=== PATIENT | male | born 1960 | race Caucasian/White ===

== ENCOUNTER 2022-10-28 18:42 | Emergency (ER) | payer SELFPAY ==
[~2022-10-28] VITALS: Ht 195.5 cm; Wt 117.9 kg
--- NOTE | 2022-10-28 18:49 | ED Neurological Problem ---
General Chief Complaint: Dizziness/Syncope Stated Complaint: EYES SHAKING,DIZZY History of Present Illness Date Seen by Provider: Oct 28, 2022 Time Seen by Provider: 18:46 Initial Comments 62 yr M with PMH of seasonal allergies, and is an active smoker, is sent here from [facility] for vertigo and nystagmus going on since Thursday (past 3 days). Pt has been struggling with seasonal Denies chest pain, blurry vision, palpitations, SOB, abdominal pain, diarrhea, vomiting, fever and chills allergies over the past couple weeks with postnasal drip, ear fullness, facial tenderness, congestion. Allergies and Home Medications Allergies Coded Allergies: No Known Drug Allergies (Unverified , 10/28/22) Patient Home Medication List Home Medication List Reviewed: Yes Review of Systems Review of Systems Constitutional: no symptoms reported Eyes: No Symptoms Reported Ears, Nose, Mouth, Throat: see HPI Respiratory: no symptoms reported Cardiovascular: no symptoms reported Gastrointestinal: no symptoms reported Genitourinary: no symptoms reported Musculoskeletal: no symptoms reported Skin: no symptoms reported Psychiatric/Neurological: See HPI Endocrine: No Symptoms Reported Hematologic/Lymphatic: No Symptoms Reported Physical Exam Vital Signs Vital Signs - First Documented 10/28/22 18:42 Temp 35.3 Pulse 63 Resp 16 B/P (MAP) 138/84 (102) Pulse Ox 96 O2 Delivery Room Air Capillary Refill : Height, Weight, BMI Height: '" Weight: lbs. oz. 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, no motor/sensory deficits, alert, normal mood/affect, oriented x 3 Crainal Nerves: normal hearing, normal speech, PERRL Coordination/Gait: normal finger to nose, normal gait, negative Romberg's sign Motor/Sensory: no motor deficit, no sensory deficit, no pronator drift, neg ative Babinski's sign Skin: normal color Progress/Results/Core Measures Results/Orders Lab Results Laboratory Tests Test 10/28/22 19:10 Range/Units White Blood Count 12.3 H 4.3-11.0 10^3/uL Red Blood Count 5.23 4.30-5.52 10^6/uL Hemoglobin 16.5 13.3-17.7 g/dL Hematocrit 49 40-54 % Mean Corpuscular Volume 93 80-99 fL Mean Corpuscular Hemoglobin 32 25-34 pg Mean Corpuscular Hemoglobin Concent 34 32-36 g/dL Red Cell Distribution Width 12.6 10.0-14.5 % Platelet Count 266 130-400 10^3/uL Mean Platelet Volume 9.6 9.0-12.2 fL Immature Granulocyte % (Auto) 1 % Neutrophils (%) (Auto) 81 H 42-75 % Lymphocytes (%) (Auto) 11 L 12-44 % Monocytes (%) (Auto) 5 0-12 % Eosinophils (%) (Auto) 1 0-10 % Basophils (%) (Auto) 1 0-10 % Neutrophils # (Auto) 10.0 H 1.8-7.8 10^3/uL Lymphocytes # (Auto) 1.4 1.0-4.0 10^3/uL Monocytes # (Auto) 0.6 0.0-1.0 10^3/uL Eosinophils # (Auto) 0.1 0.0-0.3 10^3/uL Basophils # (Auto) 0.1 0.0-0.1 10^3/uL Immature Granulocyte # (Auto) 0.1 0.0-0.1 10^3/uL Prothrombin Time 12.6 12.2-14.7 SEC INR Comment 0.9 0.8-1.4 Activated Partial Thromboplast Time 23 L 24-35 SEC Sodium Level 141 135-145 MMOL/L Potassium Level 4.2 3.6-5.0 MMOL/L Chloride Level 108 H 98-107 MMOL/L Carbon Dioxide Level 22 21-32 MMOL/L Anion Gap 11 5-14 MMOL/L Blood Urea Nitrogen 14 7-18 MG/DL Creatinine 0.83 0.60-1.30 MG/DL Estimat Glomerular Filtration Rate 99 BUN/Creatinine Ratio 17 Glucose Level 129 H 70-105 MG/DL Calcium Level 9.2 8.5-10.1 MG/DL Corrected Calcium 9.2 8.5-10.1 MG/DL Magnesium Level 2.1 1.6-2.4 MG/DL Total Bilirubin 0.4 0.1-1.0 MG/DL Aspartate Amino Transf (AST/SGOT) 11 5-34 U/L Alanine Aminotransferase (ALT/SGPT) 11 0-55 U/L Alkaline Phosphatase 90 40-136 U/L Troponin I < 0.30 <0.30 NG/ML Total Protein 6.7 6.4-8.2 GM/DL Albumin 4.0 3.2-4.5 GM/DL My Orders Orders - MARKUS TELLEZ MD Ct Head Wo-R/O Stroke (10/28/22 18:45) Chest 1 View Ap/Pa Only (10/28/22 18:46) Continuous Ekg Monitoring (10/28/22 18:47) Ekg Tracing (10/28/22 18:47) Cbc With Automated Diff (10/28/22 18:47) Comprehensive Metabolic Panel (10/28/22 18:47) Drug Screen Stat (Urine) (10/28/22 18:47) Magnesium (10/28/22 18:47) Protime With Inr (10/28/22 18:47) Partial Thromboplastin Time (10/28/22 18:47) Ua Culture If Indicated (10/28/22 18:47) Troponin I Fs (10/28/22 18:47) Ed Iv/Invasive Line Start (10/28/22 19:13) Amoxicillin/Clavulanate Tablet (Amoxicil (10/28/22 20:00) Meclizine Tablet (Meclizine Tablet) (10/28/22 20:00) Vital Signs/I&O 10/28/22 18:42 Temp 35.3 Pulse 63 Resp 16 B/P (MAP) 138/84 (102) Pulse Ox 96 O2 Delivery Room Air Progress Progress Note : Progress Note 1. NEAR SYNCOPE WORK-UP: - CT HEAD: no acute findings - CXR: normal - CBC:WBC is elevated 12.3 with a left shift - CMP:unremarkable - Troponin: undetected - EKG: bradycardia, non-ischemic - UA/ UDS: Did not give urine sample - Prescriptions given for Augmentin 875mg , twice a day for 7 days with first tab given in ER, Meclizine 25mg , three times a day only as needed for dizziness. 7 day supply given. Meclizine (one dose) given in ER. - Make ENT appointment tomorrow (Dr. Davis's office) - Follow up with PCP within 7 days. - Pt has effusions in both ears which could be triggered by his seasonal allergy symptoms he has been having, along with his elevated white count, leading to ear infections with effusion, which in turn may be triggering his vertigo. -The patient was seen in the ED, and treated appropriately to presentation at a specific point in time. Patient is informed that there is a possibility that disease and illness can evolve and change in acuity rapidly or slowly after patient is discharged from the ER. Precautionary advice given to the patient for immediate return to ER if symptoms worsen or do not resolve, and to seek emergency care sooner rather than later. Pt also advised on the importance of PCP follow up and compliance with management and follow up plan with PCP and/or specialist, as this is part of the management plan. Pt verbally expressed understanding. Diagnostic Imaging Diagonstic Imaging: Xray, CT Plain Films/CT/US/NM/MRI: chest, head Comments [facility] [place], [place] NAME: KJ SORENSEN [facility] REC#: [id number] PT STATUS: REG ER : 1960 PHYSICIAN: MARKUS TELLEZ MD ADMIT DATE: 10/28/22/ER FS Draft Date of Exam:10/28/22 CHEST 1 VIEW AP/PA ONLY INDICATION: Near syncope. Time of Exam: 6:52 PM No prior studies are available for comparison. FINDINGS: The heart size is normal. The pulmonary vascularity is unremarkable. The lungs are clear. No infiltrate, effusion or pneumothorax is detected. IMPRESSION: No acute cardiopulmonary process is detected. Dictated on workstation # [id number] Dict: 10/28/221912 Trans: 10/28/221915 [facility] [id number] Interpreted by: DARCI MENESES MD Electronically signed by: [facility] [place], [place] NAME: KJ SORENSEN [facility] REC#: [id number] PT STATUS: REG ER : 1960 PHYSICIAN: MARKUS TELLEZ MD ADMIT DATE: 10/28/22/ER FS Draft Date of Exam:10/28/22 CT HEAD WO-R/O STROKE PROCEDURE: CT head wo r/o stroke. TECHNIQUE: Multiple contiguous axial images were obtained through the brain without the use of intravenous contrast. Auto Exposure Controls were utilized during the CT exam to meet ALARA standards for radiation dose reduction. INDICATION: Dizziness. COMPARISON: None. FINDINGS: Mild to moderate generalized parenchymal volume loss. No intracranial hemorrhage, mass effect, hydrocephalus or extra-axial fluid collections. No CT evidence of a territorial infarction. Osseous structures are intact. Paranasal sinuses and mastoids are unremarkable. IMPRESSION: No acute intracranial CT findings. Dictated on workstation # [id number] Dict: 10/28/221908 Trans: 10/28/221911 [facility] [id number] Interpreted by: SHELLEY DANIEL MD Electronically signed by: Departure Impression Primary Impression: Bilateral otitis media with effusion Additional Impression: BPPV (benign paroxysmal positional vertigo) Qualified Codes: H81.10 - Benign paroxysmal vertigo, unspecified ear Disposition: 01 HOME, SELF-CARE Condition: Stable Departure-Patient Inst. Referrals: CLOTILDE DAVIS MD Patient Instructions: Vertigo (a Type of Dizziness) (DC), Serous Otitis Media (DC), Fluid in the Ear ED Add. Discharge Instructions: - Prescriptions given for Augmentin 875mg , twice a day for 7 days, Meclizine 25mg , three times a day only as needed for dizziness. & day supply given. Do not drive while using meclizine. - Make ENT appointment tomorrow (Dr. Davis's office) - Follow up with PCP within 7 days. All discharge instructions reviewed with patient and/or family. Voiced u nderstanding. Scripts Amoxicillin (Amoxicillin) 875 Mg Tablet 875 MG PO BID for 7 Days, #14 TAB Prov: MARKUS TELLEZ MD 10/28/22 Meclizine HCl (Meclizine HCl) 25 Mg Tablet 25 MG PO TID for Dizziness for 7 Days, #21 TAB Prov: MARKUS TELLEZ MD 10/28/22 MARKUS TELLEZ MD Oct 28, 2022 18:49
--- NOTE | 2022-10-28 19:13 | Diagnostic Imaging Report ---
PROCEDURE: CT head wo r/o stroke. TECHNIQUE: Multiple contiguous axial images were obtained through the brain without the use of intravenous contrast. Auto Exposure Controls were utilized during the CT exam to meet ALARA standards for radiation dose reduction. INDICATION: Dizziness. COMPARISON: None. FINDINGS: Mild to moderate generalized parenchymal volume loss. No intracranial hemorrhage, mass effect, hydrocephalus or extra-axial fluid collections. No CT evidence of a territorial infarction. Osseous structures are intact. Paranasal sinuses and mastoids are unremarkable. IMPRESSION: No acute intracranial CT findings. Dictated by: Dictated on workstation # [id number]
--- NOTE | 2022-10-28 19:16 | Diagnostic Imaging Report ---
INDICATION: Near syncope. Time of Exam: 6:52 PM No prior studies are available for comparison. FINDINGS: The heart size is normal. The pulmonary vascularity is unremarkable. The lungs are clear. No infiltrate, effusion or pneumothorax is detected. IMPRESSION: No acute cardiopulmonary process is detected. Dictated by: Dictated on workstation # [id number]
[2022-10-28 19:18] LABS: BASOPHILS # (AUTO) 0.1 10^3/uL (0.0-0.1); BASOPHILS % (AUTO) 1 % (0-10); EOSINOPHILS # (AUTO) 0.1 10^3/uL (0.0-0.3); EOSINOPHILS % (AUTO) 1 % (0-10); HEMATOCRIT 49 % (40-54); HEMOGLOBIN 16.5 g/dL (13.3-17.7); LYMPHOCYTES # (AUTO) 1.4 10^3/uL (1.0-4.0); LYMPHOCYTES % (AUTO) 11 % (12-44); MEAN CORPUSCULAR HEMOGLOBIN 32 pg (25-34); MEAN CORPUSCULAR HGB CONC 34 g/dL (32-36); MEAN CORPUSCULAR VOLUME 93 fL (80-99); MEAN PLATELET VOLUME 9.6 fL (9.0-12.2); MONOCYTES # (AUTO) 0.6 10^3/uL (0.0-1.0); MONOCYTES % (AUTO) 5 % (0-12); NEUTROPHILS % (AUTO) 81 % (42-75); PLATELET COUNT 266 10^3/uL (130-400); WHITE BLOOD COUNT 12.3 10^3/uL (4.3-11.0)
[2022-10-28 19:41] LABS: INR 0.9 (0.8-1.4); PROTHROMBIN TIME PATIENT 12.6 SEC (12.2-14.7)
[2022-10-28 19:48] LABS: ALANINE AMINOTRANSFERASE 11 U/L (0-55); ALKALINE PHOSPHATASE 90 U/L (40-136); BILIRUBIN,TOTAL 0.4 MG/DL (0.1-1.0); BUN/CREATININE RATIO 17; CALCIUM 9.2 MG/DL (8.5-10.1); CARBON DIOXIDE 22 MMOL/L (21-32); CHLORIDE 108 MMOL/L (98-107); CREATININE SERUM 0.83 MG/DL (0.60-1.30); GFR ESTIMATED 99; GLUCOSE 129 MG/DL (70-105); MAGNESIUM 2.1 MG/DL (1.6-2.4); POTASSIUM 4.2 MMOL/L (3.6-5.0); SODIUM 141 MMOL/L (135-145); TOTAL PROTEIN 6.7 GM/DL (6.4-8.2)
[2022-10-28] MEDS ORDERED: AMOXICILLIN/Clavulanate 875 MG TABLET PO STA (20:00)
[2022-10-28] MEDS ORDERED: MECLIZINE 25 MG TABLET PO ONE (20:00)
[2022-10-28] MEDS ORDERED: MECL-149 PO (20:27)
[2022-10-28] MEDS ORDERED: AMOX875T2 PO (20:27)
[2022-10-28 20:43] VITALS: BP 136/86
[2022-10-28] MEDS ORDERED: ONDA4TAB11 SL (21:08)
== END 2022-10-28 20:44 | disposition home or self-care (01) ==
LOC: ER FS 18:44
DX: H81.10 Benign paroxysmal vertigo, unspecified ear (principal); H65.93 Unspecified nonsuppurative otitis media, bilateral; R00.1 Bradycardia, unspecified; D72.829 Elevated white blood cell count, unspecified; Z28.310 Unvaccinated for COVID-19
CPT/HCPCS: 36415; 70450; 71045; 80053; 83735; 84484; 85025; 85610; 85730; 93005